=== PATIENT | male | born 1945 | race Caucasian/White ===

== ENCOUNTER → 2019-09-19 | Outpatient (CLI) | payer MEDICARE, OTHER ==
[2019-09-19 12:55] LABS: HEMATOCRIT 46.3 % (42.0-52.0); HEMOGLOBIN 15.8 gm/dL (14.0-18.0); MCH 30.5 pg (26.0-34.0); MCV 89.6 fL (80.0-100.0); MPV 9.2 fl. (7.2-11.1); RBC 5.17 mil/uL (4.50-6.00); RDW-CV 13.7 % (10.5-14.5); WBC 8.8 thou/uL (4.0-11.0)
[2019-09-19 13:07] LABS: PROTIME 10.6 Seconds (9.20-11.50)
[2019-09-19 13:11] LABS: ALBUMIN 4.3 g/dL (3.4-5.0); CALCIUM 9.5 mg/dL (8.5-10.1); CREATININE 2.7 mg/dL (0.6-1.3); POTASSIUM 4.2 mmol/L (3.5-5.1); TOTAL BILIRUBIN 0.7 mg/dL (<0.1-1.0)
[2019-09-19 13:14] LABS: URINE BILIRUBIN NEGATIVE (Negative); URINE BLOOD NEGATIVE (Negative); URINE CLARITY CLEAR; URINE COLOR YELLOW; URINE GLUCOSE-RANDOM NEGATIVE (Negative); URINE KETONES NEGATIVE (Negative); URINE LEUKOCYTES NEGATIVE (Negative); URINE NITRITE NEGATIVE (Negative); URINE PROTEIN TRACE (Negative); URINE UROBILINOGEN 0.2 E.U./dl (0.2-1.0)
[2019-09-20 02:07] LABS: GLYCOHEMOGLOBIN (HGB A1C) 6.5 % (4.8-5.6)
== END ==
LOC: M.LAB 12:04
DX: M16.12 Unilateral primary osteoarthritis, left hip (principal); R79.89 Other specified abnormal findings of blood chemistry; R82.998 Other abnormal findings in urine